=== PATIENT | male | born 1980 | race Caucasian/White ===

== ENCOUNTER 2021-10-18 15:45 | Emergency (ER) | payer MEDICAID, SELFPAY ==
[~2021-10-18] VITALS: Ht 175.3 cm; Wt 72.7 kg
[2021-10-18 16:03] VITALS: BP 105/65
[2021-10-18 17:21] LABS: COVID AG,FIA SOURCE NASOPHARYNGEAL
[2021-10-18 18:01] LABS: INFLUENZA TYPE A NEGATIVE FOR TYPE A (NEGATIVE); INFLUENZA TYPE B NEGATIVE FOR TYPE B (NEGATIVE)
== END 2021-10-18 18:32 | disposition home or self-care (01) ==
LOC: EMS 15:47
DX: U07.1 COVID-19 (principal)
CPT/HCPCS: 87426; 87804; 99283; U0003